=== PATIENT | male | born 1940 | race Caucasian/White ===

== ENCOUNTER 2019-04-21 06:11 | Inpatient (IN) ==
--- NOTE | 2019-04-02 18:51 | ANES ---
Anesthesia Pre Procedure Eval HOME MEDICATIONS sildenafil (antihypertensive) 20 mg tablet See Rx Instructions PO DAILY PRN #90 tab 07/10/18 [Last Taken Unknown] ipratropium-albuterol 0.5 mg-3 mg(2.5 mg base)/3 mL nebulization soln 3 ml IH QID #360 ml 03/03/19 [Last Taken Unknown] hydrochlorothiazide 25 mg tablet See Rx Instructions .ROUTE .COMPLEX #90 tablet 03/18/19 [Last Taken Unknown] lisinopril 40 mg tablet 40 mg PO DAILY #90 tab 03/18/19 [Last Taken Unknown] metformin 1,000 mg tablet 1,000 mg PO DAILY #90 tab 03/19/19 [Last Taken Unkno wn] Allergies/Adverse Reactions: Allergies Allergy/AdvReac Type Severity Reaction Status Date / Time No Known Allergies Allergy Verified 04/02/19 08:23 - Planned Procedure Planned Procedure: L Arthroplasty Total Knee Medication List Reviewed:: Yes Allergies Verified: Yes Medical History (Last Updated 04/02/19 @ 08:22 by Fang Van RN) History of DVT (deep vein thrombosis) Onset Date: Unknown Chronic bronchitis Onset Date: Unknown Congestive heart failure Onset Date: Unknown Diabetes mellitus type 2 in obese Onset Date: Unknown Echocardiogram abnormal Onset Date: 10/30/11 moderate LVH, EF normal Hypertension Onset Date: Unknown Abnormal stress test Onset Date: 09/27/11 undetermined Surgical History (Last Reviewed 04/02/19 @ 08:22 by Fang Van, RN) NATHAN Onset Date: 10/30/11 RLE with atherosclerotic disease and LLE normal Echocardiogram abnormal Onset Date: 10/30/11 Moderate LVH, EF normal 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 Irizarry-bilateral History of colonoscopy Onset Date: 12/26/17 12/26/17 Cee-diverticulosis. Recheck 10 yrs. History of knee replacement procedure of right knee Onset Date: ~2004 Dr. Irizarry Family History (Last Reviewed 04/02/19 @ 08:22 by Fang Van, RN) Brother , 1- age 60-unsure Myocardial infarction, Onset Age: 50 Father Lung cancer, Onset Age: 56 Mother Myocardial infarction, Onset Age: 54 Bone cancer, Onset Age: 54 Sister , 1-at No problems noted. Son Throat cancer, Onset Age: 53 - Airway/Neck/Teeth Teeth Condition: missing, poor condition Denture Type: Perm crown/bridge Mallampatti Score: 2 Thyromental (T-M) distance: > 6 cm Mandibulo Hyoid distance: > 3 cm - Respiratory Smoking Status: Current every day smoker Discussed smoking cessation including day of surgery: Yes Sleep Apnea currently treated: No Sleep Apnea by current assessment: No Discussed Risks/Treatment of WICHO: No - Cardiovascular Tolerate Activity: Fair Heart Sounds: S1 & S2, Regular - Anesthesia Assessment and Plan ASA Class: PS, III Anesthesia Type Plan: Block - Left ultrasound guided adductor canal nerve block for postop analgesia, Spinal
[~2019-04-21 06:11] MED LIST: MORPHINE SULFATE 15 MG TABLET.SA PO PRN; ROPIVACAINE HCL/PF 100 MG, EPINEPHrine 0.2 MG, KETOROLAC TROMETHAMINE 30 MG in NORMAL S... IJ PRN; TRANEXAMIC ACID 1,000 MG in NORMAL SALINE 100 ML IV PRN; ceFAZolin SODIUM 1 GM VIAL IV PRN
[2019-04-21] MEDS ORDERED: ISOPROPYL ALCOHOL 480 APPL BTL MC ONE (06:13)
[2019-04-21] MEDS ORDERED: ceFAZolin SODIUM 1 GM VIAL ONE (06:14)
[2019-04-21] MEDS: RINGER'S SOLUTION,LACTATED 1,000 ML IV PRN ×3 (07:09→08:58)
[2019-04-21] MEDS ORDERED: LIDOCAINE HCL 20 ML VIAL ONE (07:20)
[2019-04-21] MEDS ORDERED: fentaNYL CITRATE/PF 50 MCG/ML AMPUL ONE (07:20)
[2019-04-21] MEDS ORDERED: ONDANSETRON HCL/PF 2 MG/ML VIAL ONE (07:20)
[2019-04-21] MEDS ORDERED: PROPOFOL VIAL IV ONE (07:21)
[2019-04-21] MEDS ORDERED: BUPIVACAINE HCL/EPINEPHRINE 50 ML VIAL ONE (07:21)
[2019-04-21] MEDS ORDERED: ONDANSETRON HCL/PF 2 MG/ML VIAL IV PRN (09:47)
[2019-04-21] MEDS ORDERED: ZOLPIDEM TARTRATE 5 MG TABLET PO PRN (09:47)
[2019-04-21] MEDS ORDERED: RINGER'S SOLUTION,LACTATED 1,000 ML IV PRN (09:47)
[2019-04-21] MEDS ORDERED: MAG HYDROX/ALUMINUM HYD/SIMETH 30 ML UDC PO PRN (09:47)
[2019-04-21] MEDS ORDERED: MAGNESIUM HYDROXIDE 30 ML UDC PO PRN (09:47)
[2019-04-21] MEDS ORDERED: ACETAMINOPHEN 500 MG TABLET PO PRN (09:47)
[2019-04-21] MEDS ORDERED: MORPHINE SULFATE 2 MG/ML DISP.SYRIN IV PRN (09:47)
[2019-04-21] MEDS ORDERED: diphenhydrAMINE HCL 50 MG/ML VIAL IV PRN (09:47)
--- NOTE | 2019-04-21 09:47 | OR ---
Operative Report - Dictated Report Narrative: Date: 04/21/2019 Preoperative diagnosis: Left knee degenerative joint disease. Postoperative diagnosis: Left knee degenerative joint disease. Procedure: Left total knee arthroplasty. Surgeon: Robert Jung M.D. Distributor Of Directories: Juan F Villa PA-C (provided and essential set of skilled, educated hands that assisted with transfer, positioning, prepping, draping, manipulation, retraction, placement of jigs, injection, insertion of implants, irrigation, closure wounds, and dressings all of which could not be performed by the available surgical crew) Anesthesia: Spinal with regional block and local periarticular joint injection. Complications: None Specimens: Bone. Estimated blood loss: Minimal. Tourniquet time: 95 Minutes at 300 millimeters of mercury. Retained implants: Depuy Attune size 8 left lugged cemented posterior stabilized femoral component. Size 8 fixed-bearing cemented tibial platform. 8 by 6 millimeter posterior stabilized cross-linked tibial insert. 41 millimeter medialized patella button. Indications: Mr. Lan is a 78-year-old gentleman who has had longstanding left knee pain and arthrosis. This patient was followed in my clinic for period of time with significant complaints of left knee pain consistent with arthritic changes. He had failed conservative measures including, but not limited to, activity modification, passage of time, medications, and other conservative measures. Patient wished to proceed with surgical treatment. The risks, benefits, and alternatives were discussed in clinic. The risks of , blood clots, bleeding, infection, nerve/tendon blood vessel/ injury, malposition of components, intraoperative fracture, postoperative limited range of motion, persistent pain, failure of components, and need for additional procedures. Patient wished to proceed consent was obtained after answering all questions. Procedure: After marking the correct extremity on the floor, the patient was taken to the operating room. A timeout was performed. IV antibiotics consisting of Ancef were administered prior to the procedure. A regional followed by spinal anesthetic was induced by anesthesia, per my request, on the operative table with all bony prominences well-padded. Lay catheter was placed, and a bump was placed under the operative side buttock. SCDs and ROSE MARIE hose were utilized on the nonoperative leg. A well-padded tourniquet was applied to the operative thigh. The operative leg was then pre-scrubbed with alcohol, prepped, and draped in a standard sterile fashion. After exsanguinating the extremity with an Esmarch bandage, the tourniquet was inflated. After marking out the anterior knee for standard incision centered over the patella, the skin was incised and dissected down to the joint retinaculum. The joint retinaculum was marked out as well as the horizontal axis of the patella, and a standard medial parapatellar arthrotomy was then made. The most proximal aspect of the quadriceps tendon and the patella tendon insertion were protected from release. A partial synovectomy was performed as well as a resection of the infrapatellar fat pad. The distal femoral fat pad proximal to the trochlea was also resected using cautery. The soft tissues were elevated off the medial aspect of the proximal tibia using a Pacheco elevator ensuring that we did not transect the medial collateral ligament. Upon initial evaluation range of motion was approximately 0 degrees to 110 degrees of flexion. There were signs of advanced arthrosis in the medial patellofemoral greater than lateral joint spaces. There were large marginal osteophytes which were removed with a rongeur. The knee was hyperflexed and the patella was tucked laterally. Protecting the surrounding soft tissues with Homans, an entry drill was placed down the femoral canal using Whitesides line for guidance into the entry point. The intramedullary femoral alignment js was utilized in order to cut the distal femur in 5 degrees of valgus resecting 10 millimeters of bone. Next the distal femur was sized to a size 8. A posterior referencing guide was utilized to place the distal femoral cutting block in 3 degrees of external rotation. This was pinned into place. The rotation was confirmed both visually and based on anatomic landmarks. The 4 in 1 cutting jig of the appropriate size was utilized in order to make all bony cuts. The angle wing was used to ensure no notching. Retractors were utilized in order to protect surrounding soft tissues. This cut did not result in any excessive notching. We then cut the box centered over the distal femur. This allowed for resection of the anterior and posterior cruciate ligaments. I then turned my attention to the preparation of the tibia. Using an extra medullary tibial alignment js, 4 millimeters of bone was resected off the medial articular surface. This was made perpendicular to the mechanical axis of the joint with the alignment js centered over the ankle mortise. The alignment js was checked and was noted to be parallel to the mechanical axis, centered over the medial one third of the tibial tubercle, paralleling the anterior surface of the tibia. We then turned our attention to the remaining meniscus and soft tissues. These were removed while protecting the surrounding ligaments and soft tissues. The marginal osteophytes off the anterior, posterior, medial, lateral aspects of the femur and tibia were removed. The tibia was sized out to a size 8. Next the tibia was drilled and punched in an externally rotated position. Next the trial femur and a series of tibial inserts were utilized in order to allow for full extension and maximal flexion. It was found that a 6 millimeter insert gave the best range of motion and stability at multiple flexion points as well as at full extension there was less than 2 mm of gapping both medially and laterally. There is minimal anterior translation with the knee at 90 degrees of flexion and no signs of being able to dislocate the knee. The patella was then prepared. The initial thickness was 27 millimeters. This was reamed down to 17 millimeters parallel to the anterior surface of the patella. It was sized out to a size 41 medialized patella button. This was then drilled and trialed. Without any medial restraint the patella tracked appropriately and did not sublux or dislocate. At this point, it was felt these were the appropriate sized implants, and all trials were removed. The standard periarticular joint injection consisting of ropivacaine, Toradol, and epinephrine were injected into the periarticular joint tissues. The bony surfaces were thoroughly irrigated with a pulsatile-suction saline irrigation device. A bone plug from the prior resected anterior chamfer cut was placed into the drill hole at the distal femur. The bony surfaces were then dried in preparation for placement of the implants. The cement was vacuum mixed per the life insurance underwriter's instructions. The cement was placed on the dry bony surfaces and posterior aspect of the implants. The implants were impacted into place, removing all extruded cement. At this point anesthesia administered tranexamic acid per protocol intravenously. The knee was placed in extension with axial loading with the trial insert while the cement cured. Once the cement cured, all remaining extruded cement was removed. The knee was placed through a range of motion with the trial insert to ensure appropriate range of motion and stability. Final range of motion was approximately 0 to 120 degrees. The knee was again thoroughly irrigated with pulsatile saline lavage. The final polyethylene insert was then impacted into place ensuring no retained soft tissues. The remaining periarticular joint injection was injected. A medium Hemovac drain was placed exiting superior laterally. The knee was then placed over a triangle and the arthrotomy was closed with interrupted #1 Vicryl after thoroughly irrigating the joint. The deep and subcutaneous tissues were closed with interrupted 0 and 3-0 Vicryl respectively. Skin was closed with a running subcutaneous 3-0 Monocryl and Prineo Dermabond dressing. 4 x 4's, Sof-Rol, and a full leg Ritesh wrap were applied. All sponge, needle, blade, and instrument counts were correct prior to closing the wounds. Postoperative condition: The patient was awoken and transferred to the postanesthesia care unit in stable condition. Plan is to be admitted to the inpatient medical/surgical floor postoperatively for 24 hours of IV antibiotics, physical therapy, occupational therapy, and medical comanagement. Patient will be weightbearing as tolerated with range of motion as tolerated. DVT prophylaxis will be with SCDs, ROSE MARIE hose, and pharmacological anticoagulation. Anticipated hospital stay is approximately 1-3 days.
[2019-04-21] MEDS ORDERED: SILDENAFIL CITRATE 20 MG TABLET PO PRN (09:49)
--- NOTE | 2019-04-21 10:01 | ANES ---
Post Anesthesia Discharge - Transfer of Care Transfer of Care handoff given to nurse: Yes - Discharge from PACU Discharge from PACU when meets criteria: Yes - Discharge to ASU Discharge to ASU-no complications/pt stable: Yes
--- NOTE | 2019-04-21 10:03 | ANES ---
Anesthesia Procedure Note Procedure Note: ANESTHESIA PROCEDURE NOTE Date of Procedure: 04/21/2019. Time of procedure: 0740. Performed by: Jd Rosenthal CRNA Coder: None. Preprocedure diagnosis: Left knee degenerative joint disease. Post procedure diagnosis: Same. Procedure: Left ultrasound guided adductor canal block for postoperative analgesia. Indications: The patient is a 78-year-old male, requesting left ultrasound- guided abductor canal block for postoperative analgesia related to left total knee arthroplasty. Findings: See below. Details of the procedure: The tissue over the intended target site was cleansed with ChloraPrepand draped in a sterile fashion. 2 ml Lidocaine 1 % was infiltrated to the skin and subcutaneous tissue at the intended target site. Under sterile technique and ultrasound guidance a 20-gauge block needle was inserted through the left sartorius muscle to the saphenous nerve just anterior and medial to the superficial femoral artery and vein. 15 mL's of 0.5% bupivacaine plus epinephrine 1-200,000 was injected after negative aspiration for blood. Needle tip and spread of local anesthetic surrounding the saphenous nerve was observed throughout the injection with real time ultrasound visualization. The needle was then removed intact. No complications were noted. The images were retained in the Hospital medical database. EBL: Minimal. Fluids: N/A. Specimen: N/A. Post procedure condition: The patient tolerated the procedure well. No complications were noted. Thank you for this consultation. Jd Rosenthal CRNA
[2019-04-21] MEDS: KETOROLAC TROMETHAMINE 15 MG/ML VIAL IV SCH ×3 (10:43→23:16)
[2019-04-21] MEDS: ceFAZolin SODIUM 1 GM in DEXTROSE 5 % IN WATER 100 ML IV SCH ×6 (10:50→23:16)
[2019-04-21] MEDS: ALBUTEROL SULFATE/IPRATROPIUM 3 ML NEBU IH SCH ×3 (11:05→18:21)
[2019-04-21] MEDS: oxyCODONE HCL/ACETAMINOPHEN 1 TAB TABLET PO PRN (11:51)
--- NOTE | 2019-04-21 12:49 | ANES ---
Post Anesthesia Assessment - Vital Signs Vitals: Last Vital Signs Temp 36.3 C 04/21/19 10:25 Pulse 61 04/21/19 11:15 Resp 18 04/21/19 11:15 BP 167/76 H 04/21/19 11:10 Pulse Ox 100 04/21/19 11:10 Airway Patency: Normal - Mental Status Level Of Consciousness: Awake - Pain Level Pain Score: 0 - N/V Assessment Nausea/Vomiting Presence: None Dehydration:: No
[2019-04-21] MEDS: SENNOSIDES/DOCUSATE SODIUM 1 TAB TABLET PO SCH (20:14)
[2019-04-21] MEDS: MORPHINE SULFATE 15 MG TABLET.SA PO SCH (20:15)
[2019-04-22] MEDS: KETOROLAC TROMETHAMINE 15 MG/ML VIAL IV SCH ×4 (04:24→23:01)
[2019-04-22] MEDS: ALBUTEROL SULFATE/IPRATROPIUM 3 ML NEBU IH SCH ×4 (06:10→18:12)
[2019-04-22 06:30] LABS: Hematocrit 37.5 % (42.0-52.0); Hemoglobin 12.5 gm/dL (13.5-18.0); Mean Cell Volume 92.1 fl (78-100); Mean Corpuscular Hemoglobin 30.7 pg (27-31); Mean Corpuscular Hgb Conc 33.3 g/dl (32-36); Mean Platelet Volume 9.7 fl (8-11.3); Platelet Count 244 K/mm3 (150-450); Red Blood Count 4.07 M/mm3 (4.7-6.0); Red Cell Distribution Width 15.4 % (11.5-14.0); White Blood Count 11.7 K/mm3 (4.0-10.5)
[2019-04-22 06:35] LABS: Anion Gap 12.1 mmol/L (6.8-13.8); BUN/Creatinine Ratio 19.7 (9.0-21.6); Calcium * 7.8 mg/dL (7.9-10.9); Carbon Dioxide 26.8 mmol/L (24-32.6); Estimated Creat Clear 50.4; Potassium 4.9 mmol/L (3.4-4.6)
--- NOTE | 2019-04-22 08:08 | PN ---
Subjective - Date and Time Seen Date: 04/22/19 Time: 08:04 Subjective Narrative: Patient reports he is doing well. Pain controlled. Was able to get up to chair this am. No complaints at this time. Is planning on going to skilled center on . Objective Objective Narrative: Bandages C/D/I. Drain intact. Is able to do straight leg raise. N/V intact LLE. - Vitals Vitals: Last Vital Signs Temp 36.7 C 04/21/19 11:40 Pulse 80 04/22/19 08:02 Resp 18 04/22/19 08:02 BP 134/68 04/22/19 08:02 Pulse Ox 93 04/22/19 08:02 - Abnormal Lab Findings Abnormal Lab Findings: Abnormal Lab Results 04/22/19 04/22/19 Range/Units 06:24 06:24 WBC 11.7 H (4.0-10.5) K/mm3 RBC 4.07 L (4.7-6.0) M/mm3 Hgb 12.5 L (13.5-18.0) gm/dL Hct 37.5 L (42.0-52.0) % RDW 15.4 H (11.5-14.0) % Potassium 4.9 H (3.4-4.6) mmol/L BUN 24 H (6-23) mg/dL Random Glucose 120 H (70-110) mg/dL Calcium 7.8 L (7.9-10.9) mg/dL - Exam Constitutional: Present: Alert, Oriented x3, Cooperative, No distress Cauti Physician Documentation - Urinary Catheter Management Urethral (Lay) Date of Insertion: 04/21/19 Time of Insertion: 08:10 Assessment/Plan - Problems/Diagnosis (1) Status post left knee replacement Problem: Acute Narrative: PT, anticoagulation, pain control (2) Acute blood loss anemia Problem: Acute Narrative: Down from 14.7g preop to 12.5g, asymptomatic, observation (3) Hypertension Problem: Chronic Qualifiers: (4) Diabetes mellitus type II, controlled Problem: Acute Qualifiers: (5) COPD (chronic obstructive pulmonary disease) Problem: Acute Qualifiers:
[2019-04-22] MEDS ORDERED: FLU VACC QS2019-20(6MOS UP)/PF 60 MCG/0.5 ML SYRINGE IM ONE (09:00)
[2019-04-22] MEDS: ENOXAPARIN SODIUM 40 MG/0.4 ML SYRG SC SCH (09:08)
[2019-04-22] MEDS: MORPHINE SULFATE 15 MG TABLET.SA PO SCH ×2 (09:09→20:38)
[2019-04-22] MEDS: oxyCODONE HCL/ACETAMINOPHEN 1 TAB TABLET PO PRN ×2 (09:09→23:02)
[2019-04-22] MEDS: LISINOPRIL 40 MG TABLET PO SCH (09:09)
[2019-04-22] MEDS: HYDROCHLOROTHIAZIDE 25 MG TABLET PO SCH (09:09)
[2019-04-22] MEDS: SENNOSIDES/DOCUSATE SODIUM 1 TAB TABLET PO SCH (20:38)
[2019-04-23] MEDS: KETOROLAC TROMETHAMINE 15 MG/ML VIAL IV SCH (05:06)
[2019-04-23] MEDS: ALBUTEROL SULFATE/IPRATROPIUM 3 ML NEBU IH SCH ×4 (06:00→18:04)
[2019-04-23] MEDS: HYDROCHLOROTHIAZIDE 25 MG TABLET PO SCH (08:53)
[2019-04-23] MEDS: MORPHINE SULFATE 15 MG TABLET.SA PO SCH ×2 (08:53→21:41)
[2019-04-23] MEDS: LISINOPRIL 40 MG TABLET PO SCH (08:53)
[2019-04-23] MEDS: ENOXAPARIN SODIUM 40 MG/0.4 ML SYRG SC SCH (08:54)
--- NOTE | 2019-04-23 11:50 | PN ---
Subjective - Date and Time Seen Date: 04/23/19 Time: 11:48 Subjective Narrative: Subjective: Reports good pain control. Was able to walk in the [place] with therapy. Pain is well-controlled. Voiding without any complications. Tolerating by mouth intake. Denies any nausea or vomiting. Physical exam: Alert and oriented to person, place and time Left lower extremity: Palpable dorsalis pedis pulse. Sensation grossly intact to light touch. Dressings clean and dry. Able to flex and extend ankle and toes. No excessive drainage. Calf and thigh are soft and nontender. Assessment: Postop day 2 status post left total knee arthroplasty. Plan: Due to the need for pain control, post-operative limited mobility, protection of the surgical site and joint, monitoring of the wound, and the management of chronic medical conditions, he requires continued inpatient care. Continue with physical and occupational therapy weightbearing as tolerated. Continue with anticoagulation. Pain control with goal to rely on oral medications. Continue bowel regimen. Will need 6 weeks with walker or assitive device to protect joint while ambulating during the recovery process. Discharge planning -he is planning on going to a custodial facility for additional therapy prior to returning home. Objective - Vitals Vitals: Last Vital Signs Temp 36.7 C 04/23/19 11:00 Pulse 73 04/23/19 11:00 Resp 20 04/23/19 11:00 BP 147/68 04/23/19 11:00 Pulse Ox 93 04/23/19 11:00 Cauti Physician Documentation - Urinary Catheter Management Urethral (Lay) Date of Insertion: 04/21/19 Time of Insertion: 08:10 Assessment/Plan - Problems/Diagnosis (1) Acute blood loss anemia Problem: Acute (2) Status post left knee replacement Problem: Acute (3) COPD (chronic obstructive pulmonary disease) Problem: Chronic Qualifiers: (4) Diabetes mellitus type II, controlled Problem: Chronic Qualifiers: (5) Hypertension Problem: Chronic Qualifiers:
[2019-04-23] MEDS: oxyCODONE HCL/ACETAMINOPHEN 1 TAB TABLET PO PRN (19:47)
[2019-04-23] MEDS: guaiFENesin/DEXTROMETHORPHAN SYRUP PO PRN (20:03)
[2019-04-23] MEDS: SENNOSIDES/DOCUSATE SODIUM 1 TAB TABLET PO SCH (21:40)
[2019-04-24] MEDS: ALBUTEROL SULFATE/IPRATROPIUM 3 ML NEBU IH SCH ×2 (06:01→10:41)
[2019-04-24] MEDS: guaiFENesin/DEXTROMETHORPHAN SYRUP PO PRN (07:26)
--- NOTE | 2019-04-24 07:52 | DS ---
(1) Acute blood loss anemia Problem: Acute (2) Status post left knee replacement Problem: Acute (3) COPD (chronic obstructive pulmonary disease) Problem: Chronic Qualifiers: (4) Diabetes mellitus type II, controlled Problem: Chronic Qualifiers: (5) Hypertension Problem: Chronic Qualifiers: (6) Cough Problem: Acute Date of Discharge:: 04/24/19 Hospital Course: Mr. Lan was admitted to the floor after undergoing left total knee arthro plasty. Tolerated this well. Was admitted to the floor postoperatively for 24 hours of IV antibiotics, pain control, medical comanagement, and occupational and physical therapy. OT and PT were consulted to assist with activities of daily living and ambulation. Was made weightbearing as tolerated with range of motion as tolerated. Pain was initially controlled with IV regimen. This was transitioned to oral once tolerating a by mouth intake. Was resumed on home diet and medications. Had a Lay catheter inserted and the operating room which was discontinued on postoperative day 1. A drain was placed intraoperatively into the knee which was discontinued on postoperative day 1. Lovenox SCD and ROSE MARIE hose were utilized for DVT prophylaxis. Vital signs remained stable to the hospital course. Labs were obtained which showed a final hemoglobin of 12.5 grams. Pre-op hemoglobin was 14.7. He was asymptomatic and thus this will be monitored. BMP was reviewed and was stable. Physical examination throughout the hospital course showed an extremity that had sensation that was intact to light touch, palpable pulses, a benign wound, motor intact to the toes, ankle, and knee. Knee range of motion was approximately 5 degrees to 60 degrees. He was somewhat slow to progress with therapy and based on his living situation we elected to transfer to a halfway facility for additional physical therapy. Instructions: Continue with weightbearing as tolerated and range of motion as tolerated. It is okay to shower and get the wound wet as long as there is no drainage from the wound. Do not bathe or soak the wound. If there is any drainage from the wound keep the wound clean and dry and cover with dry gauze and tape. Change every 2- 3 days as needed if there is any drainage. Cover wound while showering if there is any drainage. Continue with physical therapy. Resume home diet. Report any fever over 101.5 Fahrenheit, uncontrolled pain, increased drainage, foul odor of drainage, new or increased calf pain or shortness of breath, or any other significant complaints. A 325mg dialy aspirin will be started after finishing anticoagulation if not allergic. Continue with ROSE MARIE hose on the operative extremity until instructed otherwise. No driving until instructed otherwise. Follow up in approximately 2-3 weeks. Procedures Performed: see notes below List Procedures: Left total knee arthroplasty Results and Findings: Lab Pending Results 04/22/19 06:24: WBC 11.7 H, RBC 4.07 L, Hgb 12.5 L, Hct 37.5 L, MCV 92.1, MCH 30.7, MCHC 33.3, RDW 15.4 H, Plt Count 244, MPV 9.7 04/22/19 06:24: Sodium 136, Plasma Sodium 136, Potassium 4.9 H, Chloride 102, Carbon Dioxide 26.8, Anion Gap 12.1, BUN 24 H, Creatinine 1.22, Est GFR (Non-Af Amer) 61, BUN/Creatinine Ratio 19.7, Random Glucose 120 H, Calcium 7.8 L Discharge Location: [facility] Disposition: SNF Condition: Good Discharge Activity: Activity as tolerated, Weight bearing Discharge Diet: Consistent carbs Group Home Therapy: Physical Therapy, Occupation Therapy Referrals: Robert Jung MD [Staff Physician] - 05/13/19 10:45 am Additional Patient Instructions (free text): Patient going to [facility] at discharge for SNF. Please fax discharge orders and call report. PT and OT to evaluate and treat. Follow-up with Dr. Jung in the office on Sunday05-13-19 at 10:45am. Prescriptions (Any new or edited meds): Enoxaparin Sodium [Lovenox] 40 mg SC Q24H #7 disp.syrin Transmission Status: Pending to [facility], [place] Morphine Sulfate [Ms Contin] 15 mg PO Q12H #10 tablet.sa Transmission Status: Sent to [place], [place] oxyCODONE HCL/ACETAMINOPHEN [Percocet 5 MG/325 MG] 2 tab PO Q4H PRN #60 tab PRN Reason: Moderate Pain (Pain Scale 4-6) Transmission Status: Sent to [facility] [place] Sennosides/Docusate Sodium [Senokot-S] 2 tab PO HS #60 tab Transmission Status: Pending to [facility] [place], [place] Complete Home Medications List: Complete Home Medication List: ipratropium-albuterol 0.5 mg-3 mg(2.5 mg base)/3 mL nebulization soln 3 ml IH QID #360 ml 03/03/19 lisinopril 40 mg tablet 40 mg PO DAILY #90 tab 03/18/19 metformin 1,000 mg tablet 1,000 mg PO DAILY #90 tab 03/19/19 Hydrochlorothiazide [Hydrodiuril] 1 tab PO DAILY 04/21/19 Sildenafil Citrate [Revatio] 1 - 5 tab PO DAILY PRN 04/21/19 Enoxaparin Sodium [Lovenox] 40 mg SC Q24H #7 disp.syrin 04/24/19 Morphine Sulfate [Ms Contin] 15 mg PO Q12H #10 tablet.sa 04/24/19 Sennosides/Docusate Sodium [Senokot-S] 2 tab PO HS #60 tab 04/24/19 guaiFENesin/DEXTROMETHORPHAN [Robitussin-Dm] 10 ml PO Q4H PRN syrup 04/24/19 oxyCODONE HCL/ACETAMINOPHEN [Percocet 5 MG/325 MG] 2 tab PO Q4H PRN #60 tab 04/24/19
[2019-04-24] MEDS: MORPHINE SULFATE 15 MG TABLET.SA PO SCH (09:06)
[2019-04-24] MEDS: oxyCODONE HCL/ACETAMINOPHEN 1 TAB TABLET PO PRN (09:06)
[2019-04-24] MEDS: HYDROCHLOROTHIAZIDE 25 MG TABLET PO SCH (09:07)
[2019-04-24] MEDS: ENOXAPARIN SODIUM 40 MG/0.4 ML SYRG SC SCH (09:07)
[2019-04-24] MEDS: LISINOPRIL 40 MG TABLET PO SCH (09:07)
[2019-04-24 10:48] VITALS: BP 137/67
== END 2019-04-24 10:55 | DRG 470 ==
LOC: MS 06:11 → EDSTATUS 08:00
PROVIDERS: ADMIT Orthopaedic Surgery; ATTEND Orthopaedic Surgery
CPT/HCPCS: 36415; 71020; 71046; 73560; 80048; 85027; 90686; 94640; 94664; 97110; 97116; 97161; 97165; 97535; J2405

== ENCOUNTER 2019-04-25 11:59 | Observation (INO) ==
[2019-04-25] MEDS ORDERED: PANTOPRAZOLE SODIUM 40 MG/100 ML PIGGYBACK IV ONE (12:14)
--- NOTE | 2019-04-25 12:16 | ERNOTE ---
Medical Problem HPI - General Chief Complaint: Nausea/Vomiting Time Seen by Provider: 04/25/19 11:59 Source: patient, RN/MD, EMS Exam Limitations: no limitations - Immun/Allergies/Home Medications Immunizations: IMMUNIZATION HX Immunizations Up to Date Yes History of Influenza Vaccine No Hx Pneumococcal Vaccination No Allergies/Adverse Reactions: Allergies No Known Allergies Allergy (Verified 04/25/19 12:13) Home Medications: HOME MEDICATIONS ipratropium-albuterol 0.5 mg-3 mg(2.5 mg base)/3 mL nebulization soln 3 ml IH QID #360 ml 03/03/19 [Last Taken 04/25/19 12:00] lisinopril 40 mg tablet 40 mg PO DAILY #90 tab 03/18/19 [Last Taken 04/25/19 07:00] metformin 1,000 mg tablet 1,000 mg PO DAILY #90 tab 03/19/19 [Last Taken 04/25/19 07:00] Sildenafil Citrate [Revatio] 1 - 5 tab PO DAILY PRN 04/21/19 [Last Taken Unknown] Morphine Sulfate [Ms Contin] 15 mg PO Q12H #10 tablet.sa 04/24/19 [Last Taken 04/25/19 08:00] Sennosides/Docusate Sodium [Senokot-S] 2 tab PO HS #60 tab 04/24/19 [Last Taken 04/24/19] guaiFENesin/DEXTROMETHORPHAN [Robitussin-Dm] 10 ml PO Q4H PRN syrup 04/24/19 [Last Taken Unknown] oxyCODONE HCL/ACETAMINOPHEN [Percocet 5 MG/325 MG] 2 tab PO Q4H PRN #60 tab 04/24/19 [Last Taken 04/25/19 00:22] Aspirin 325 mg PO DAILY 04/25/19 [Last Taken Unknown] Enoxaparin Sodium [Lovenox] 40 mg SC Q24H 04/25/19 [Last Taken 04/25/19 07:00 40] Hydrochlorothiazide [Hydrodiuril] 25 mg PO DAILY 04/25/19 [Last Taken 04/25/19 07:00] - History of Present History Narrative: Patient is 79-year-old white male with recent left knee arthroplasty on 04/21/2019 and has been at [facility] for skilled rehab. He denies taking any NSAIDs, aspirin but was started on Lovenox injections this a.m. He has not been eating well for the last several days due to the Percocet causing some nausea. He has had some vomiting over last several days but did not have any coffee-ground emesis until this a.m. He does complain of some lightheadedness when standing and some slight shortness of breath when ambulating, but does admit to history of COPD. He denies any chest pain, melena or hematochezia, states hasn't had a BM since Sunday. He has no previous history of GI bleeds. He feels weak and tired at this time, but otherwise no other issues. He denies any significant alcohol use in the past or present. Due to the coffee-ground emesis [facility] requested he be sent to the ER via EMS for further evaluation. He is holding an emesis bag that does have black substance in it. EMS reports that his O2 sats were in the low 80s so they did place him on oxygen and got him into the low 90s at 2 L nasal cannula. They did place a IV in his left forearm, no IV fluids given. And they did give him an albuterol treatment due to significant wheezing heard. BP on Admit Selected Entries 04/25/19 12:04 Blood Pressure 106/56 Timing: intermittent Severity: moderate Review of Systems - Review of Systems Constitutional: Present: weakness, fatigue. Absent: fever, chills EYE: Present: no symptoms reported ENT: Present: no symptoms reported Respiratory: Present: shortness of breath, wheezing Cardiology: Present: no symptoms reported Gastrointestinal/Abdominal: Present: See HPI, nausea, vomiting. Absent: diarrhea, constipation, abdominal pain Genitourinary: Present: no symptoms reported Musculoskeletal: Present: no symptoms reported Skin: Present: no symptoms reported Neurological: Present: no symptoms reported Endocrine: Present: no symptoms reported Hematologic/Lymphatic: Present: no symptoms reported Psych: Present: no symptoms reported Medical History (Last Reviewed 04/25/19 @ 12:22 by Mikey Masterson MD) Chronic bronchitis Onset Date: Unknown Congestive heart failure Onset Date: Unknown Diabetes mellitus type 2 in obese Onset Date: Unknown Echocardiogram abnormal Onset Date: 10/30/11 moderate LVH, EF normal History of DVT (deep vein thrombosis) Onset Date: Unknown Hypertension Onset Date: Unknown Abnormal stress test Onset Date: 09/27/11 undetermined Surgical History: Surgical History (Last Reviewed 04/25/19 @ 12:22 by Mikey Masterson MD) NATHAN Onset Date: 10/30/11 RLE with atherosclerotic disease and LLE normal Echocardiogram abnormal Onset Date: 10/30/11 Moderate LVH, EF normal Fatty tumor Onset Date: ~2004 right shoulder H/O excision of epidermal inclusion cyst Onset Date: 12/31/15 [place]-left hip H/O hemorrhoidectomy Onset Date: Unknown H/O hernia repair Onset Date: ~1949 Left inguinal History of carpal tunnel release of both wrists Onset Date: ~1993 Dr. Irizarry-bilateral History of colonoscopy Onset Date: 12/26/17 12/26/17 [place]-diverticulosis. Recheck 10 yrs. History of knee replacement procedure of right knee Onset Date: ~2004 Dr. Irizarry Family History: Family History (Last Reviewed 04/25/19 @ 12:22 by Mikey Masterson MD) Brother , 1- age 60-unsure Myocardial infarction, Onset Age: 50 Father Lung cancer, Onset Age: 56 Mother Myocardial infarction, Onset Age: 54 Bone cancer, Onset Age: 54 Sister , 1-at No problems noted. 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[employer]: No Tobacco: Smoking Status: Current every day smoker tobacco type: cigarettes Smoking cigarettes per day: 10.0 Smoking packs per day: 0.5 Years smoked: 71 Smoking pack-years: 35.50 Tobacco: How many years used: 71 Alcohol: alcohol intake: current Alcohol type: beer alcohol intake frequency: holiday/special occasion Substance Use: substance use type: does not use Dietary Habits: caffeine: Yes Type: coffee Physical Exam - Physical Exam General Appearance: Present: alert, mild distress, lethargic, obese, other - pale Head Exam: Present: normal inspection, no evidence of injury Eye Exam: Normal inspection: bilateral, PERRL: bilateral, EOMI: bilateral Ears, Nose, Throat: Present: normal ENT inspection, other - black material in OP/coating tongue Neck: Present: normal inspection Respiratory: Present: expiration (prolonged), rhonchi, wheezing Cardiovascular/Chest: Present: regular rate, rhythm, no murmur, normal peripheral pulses Peripheral Pulses: N=norm/S=strong/W=weak/B=bound/A=absent: Radial (R): Normal, Radial (L): Normal Gastrointestinal/Abdominal: Present: normal bowel sounds, distended - tympanitic Neurological Exam: Present: alert, oriented, normal mood/affect, no motor/sensory deficits Skin Exam: Present: pallor Progress - Results and Orders Patient's Lab Results:: I have reviewed the patient's lab results. - Vital Signs Patient's Vital Signs:: I have reviewed the patient's vital signs. Vital Signs: Vital Signs 04/25/19 12:01 04/25/19 12:04 Temperature 36.0 C Pulse Rate 85 80 Respiratory Rate 21 H 14 Blood Pressure 106/56 O2 Sat by Pulse Oximetry 91 L 87 L - X-Ray X-Ray #1 X-Ray: chest Interpretation: Reviewed by me - IMPRESSION: NO ACUTE CARDIOPULMONARY ABNORM ALITY IDENTIFIED. hyperinflated consistent with COPD - Progress/Reassessment Chief Complaint: Nausea/Vomiting Progress:: Unchanged Progress Note-Subjective: 04/25/19 14:[address] Miles who accepted pt. for admit to obs. Plan - Plan Plan: Pt. Hb dropped to 10.0, with elevated Cr of 1.82, with positive Gastrocult, feel prudent to admit for observation to monitor serial H/H and to place pt. on protonix and do SCD's for DVT prophylaxis, holding his lovenox. Dr. Jung notified via [facility] of plan. Will admit to medicine service. Departure Clinical Impression: Acute blood loss anemia, Upper GI bleed, Acute kidney injury, COPD (chronic obstructive pulmonary disease) - Departure Disposition: Still a patient Condition: Stable Referrals: Irvin Aranda MD [Primary Care Provider] -
[2019-04-25 12:24] LABS: Hematocrit 30.5 % (42.0-52.0)
[2019-04-25 12:36] LABS: Prothrombin Time (Patient) 10.2 Seconds (9.1-10.7)
[2019-04-25 12:37] LABS: INR 1.03 INR (0.92-1.08); Partial Thrombolplastin Time 29.4 Seconds (24-32)
[2019-04-25 12:44] LABS: Albumin * 2.1 gm/dl (3.4-5.0); Anion Gap 3.9 mmol/L (6.8-13.8); BUN/Creatinine Ratio 37.9 (9.0-21.6); Bilirubin Direct 0.2 mg/dL (0.0-0.3); Bilirubin, Total 0.5 mg/dL (0.0-1.1); Bilirubin,Indirect 0.3 mg/dL (0.1-0.7); Calcium * 7.6 mg/dL (7.9-10.9); Carbon Dioxide 36.3 mmol/L (24-32.6); Estimated Creat Clear 34.5; Potassium 5.2 mmol/L (3.4-4.6); Total Protein 5.9 gm/dL (6.2-8.2)
[2019-04-25] MEDS ORDERED: ONDANSETRON HCL/PF 2 MG/ML VIAL IV ONE ×2 (12:47→15:00)
[2019-04-25] MEDS ORDERED: RINGER'S SOLUTION,LACTATED 500 ML IV ONE ×2 (12:57→13:34)
[2019-04-25] MEDS ORDERED: NORMAL SALINE 1,000 ML IV PRN (14:27)
[2019-04-25] MEDS ORDERED: PANTOPRAZOLE SODIUM 40 MG in NORMAL SALINE 100 ML IV SCH (14:30)
[2019-04-25] MEDS ORDERED: SUCRALFATE 1 G TABLET PO SCH ×2 (14:30→21:00)
[2019-04-25] MEDS ORDERED: RINGER'S SOLUTION,LACTATED 1,000 ML IV ONE (14:44)
[2019-04-25] MEDS ORDERED: ALBUTEROL SULFATE/IPRATROPIUM 3 ML NEBU IH ONE (14:45)
[2019-04-25 15:23] LABS: Hematocrit 26.5 % (42.0-52.0); Hemoglobin 8.8 gm/dL (13.5-18.0)
[2019-04-25] MEDS ORDERED: FUROSEMIDE 10 MG/ML VIAL IV ONE (16:31)
[2019-04-25] MEDS ORDERED: ACETAMINOPHEN 500 MG TABLET PO ONE (16:31)
[2019-04-25] MEDS ORDERED: diphenhydrAMINE HCL 50 MG CAPSULE PO ONE (16:31)
[2019-04-25] MEDS ORDERED: OCTREOTIDE ACETATE 50 MCG/ML VIAL IV ONE (16:35)
[2019-04-25] MEDS ORDERED: oxyCODONE HCL/ACETAMINOPHEN 1 TAB TABLET PO PRN (16:37)
[2019-04-25] MEDS ORDERED: MORPHINE SULFATE 15 MG TABLET.SA PO SCH (16:45)
[2019-04-25] MEDS ORDERED: FAMOTIDINE 20 MG in DEXTROSE 5 % IN WATER 100 ML IV SCH ×2 (16:45)
[2019-04-25] MEDS ORDERED: OCTREOTIDE ACETATE 500 MCG/ML IV ONE (17:00)
[2019-04-25] MEDS: ALBUTEROL SULFATE/IPRATROPIUM 3 ML NEBU IH SCH ×2 (17:36→20:04)
--- NOTE | 2019-04-25 18:04 | HP ---
Chief Complaint - Chief Complaint Date of Service: 04/25/19 Time of Service: 16:00 Chief Complaint: Upper GI Bleed History of Present Illness: 79 year-old male with past medical history of hypertension, type 2 diabetes mellitus, and COPD presented to for medicine ER due to acute blood loss anemia most likely secondary to upper GI bleed. Patient is status post left knee replacement approximately 1 week ago. Patient discharged to rehab facility and will doing well till this morning. Patient started having coffee-ground emesis this morning. [facility]. Hemoglobin 3 days ago was 10 today it is 8. Patient has no history of varices that we aware off or ulcerations. On arrival to the ER patient was hypotensive and symptomatic. Patient received 2 L fluid boluses for fluid resuscitation which resulted in fluid overload. Patient started on upper GI bleed protocol. Attempted NG tube which was unsuccessful. All blood thinners and hypertensive medications stopped. Patient was typed and screened and currently has 1 unit of blood started being administered, however patient is hypotensive and symptomatic. It appears patient is actively bleeding. Patient transferred to critical unit for and started on pressors. We will continue blood transfusions. At this moment patient will be transferred to higher facility for further management. Medical History (Last Reviewed 04/25/19 @ 12:22 by Mikey Masterson MD) Chronic bronchitis Onset Date: Unknown Congestive heart failure Onset Date: Unknown Diabetes mellitus type 2 in obese Onset Date: Unknown Echocardiogram abnormal Onset Date: 10/30/11 moderate LVH, EF normal History of DVT (deep vein thrombosis) Onset Date: Unknown Hypertension Onset Date: Unknown Abnormal stress test Onset Date: 09/27/11 undetermined Surgical History: Surgical History (Last Reviewed 04/25/19 @ 12:22 by Mikey Masterson MD) NATHAN Onset Date: 10/30/11 RLE with atherosclerotic disease and LLE normal Echocardiogram abnormal Onset Date: 10/30/11 Moderate LVH, EF normal 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 Irizarry-bilateral History of colonoscopy Onset Date: 12/26/17 12/26/17 [place]-diverticulosis. Recheck 10 yrs. History of knee replacement procedure of right knee Onset Date: ~2004 Dr. Irizarry Family History: Family History (Last Reviewed 04/25/19 @ 12:22 by Mikey Masterson MD) Brother , 1- age 60-unsure Myocardial infarction, Onset Age: 50 Father Lung cancer, Onset Age: 56 Mother Myocardial infarction, Onset Age: 54 Bone cancer, Onset Age: 54 Sister , 1-at No problems noted. 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 Absent: Chest Pain Abdominal: Present: Nausea, Hematemesis, Melena. Absent: Abdominal Pain, Bright blood from rectum Musculoskeletal: Present: Joint Swelling - BL LE Immunizations: IMMUNIZATION HX Immunizations Up to Date Yes History of Influenza Vaccine No Hx Pneumococcal Vaccination No Allergies/Adverse Reactions: Allergies Allergy/AdvReac Type Severity Reaction Status Date / Time No Known Allergies Allergy Verified 04/25/19 12:13 Home Medications: HOME MEDICATIONS ipratropium-albuterol 0.5 mg-3 mg(2.5 mg base)/3 mL nebulization soln 3 ml IH QID #360 ml 03/03/19 [Last Taken 04/25/19 12:00] lisinopril 40 mg tablet 40 mg PO DAILY #90 tab 03/18/19 [Last Taken 04/25/19 07:00] metformin 1,000 mg tablet 1,000 mg PO DAILY #90 tab 03/19/19 [Last Taken 04/25/19 07:00] Sildenafil Citrate [Revatio] 1 - 5 tab PO DAILY PRN 04/21/19 [Last Taken Unknown] Morphine Sulfate [Ms Contin] 15 mg PO Q12H #10 tablet.sa 04/24/19 [Last Taken 04/25/19 08:00] Sennosides/Docusate Sodium [Senokot-S] 2 tab PO HS #60 tab 04/24/19 [Last Taken 04/24/19] guaiFENesin/DEXTROMETHORPHAN [Robitussin-Dm] 10 ml PO Q4H PRN syrup 04/24/19 [Last Taken Unknown] oxyCODONE HCL/ACETAMINOPHEN [Percocet 5 MG/325 MG] 2 tab PO Q4H PRN #60 tab 04/24/19 [Last Taken 04/25/19 00:22] Aspirin 325 mg PO DAILY 04/25/19 [Last Taken Unknown] Enoxaparin Sodium [Lovenox] 40 mg SC Q24H 04/25/19 [Last Taken 04/25/19 07:00 40] Hydrochlorothiazide [Hydrodiuril] 25 mg PO DAILY 04/25/19 [Last Taken 04/25/19 07:00] Exam - Exam Vital Signs: Vital Signs - Last Taken Temp 37.0 C 04/25/19 15:50 Pulse 83 04/25/19 15:50 Resp 12 04/25/19 15:50 BP 104/61 04/25/19 15:50 Pulse Ox 96 04/25/19 15:50 Constitutional: Present: Alert, Oriented x3, Cooperative, Acute distress ENT Exam: Present: hearing grossly normal Neck: Present: full range of motion, supple Respiratory: Present: chest non-tender, respiratory distress, crackles - diffue Cardiovascular/Chest: Present: regular rate, rhythm, JVD, other - ASCITES, edema - LE BL Abdomen: Present: Normal bowel sounds, firm, distended Extremity: Present: lower extremity edema, swelling. Absent: normal range of motion - S/P knee replacement Skin Exam: Present: cool/dry Neurologic: Present: oriented x 3 Appearance: Present: appropriate appearance Eye contact: Present: cooperative Diagnostic Studies: Abnormal Lab Results 04/25/19 04/25/19 04/25/19 Range/Units 12:20 12:20 12:20 Hgb 10.0 L (13.5-18.0) gm/dL Hct 30.5 L (42.0-52.0) % pO2 (83.0-108.0) mmHg HCO3 (21.0-28.0) mmol/L Total CO2 (19.0-24.0) mmol/L Base Excess (-2.0-3.0) mmol/L Sodium 131 L (132-142) mmol/L Potassium 5.2 H (3.4-4.6) mmol/L Chloride 96 L (97-106) mmol/L Carbon Dioxide 36.3 H (24-32.6) mmol/L Anion Gap 3.9 L (6.8-13.8) mmol/L BUN 69 H D (6-23) mg/dL Creatinine 1.82 H D (0.4-1.4) mg/dL Est GFR (Non-Af Amer) 38 L D (60-130) mL/min BUN/Creatinine Ratio 37.9 H (9.0-21.6) Random Glucose 143 H (70-110) mg/dL Calcium 7.6 L (7.9-10.9) mg/dL Total Protein 5.9 L (6.2-8.2) gm/dL Albumin 2.1 L (3.4-5.0) gm/dl Gastric Occult Blood Crossmatch See Detail 04/25/19 04/25/19 04/25/19 Range/Units 12:41 15:20 16:50 Hgb 8.8 L (13.5-18.0) gm/dL Hct 26.5 L (42.0-52.0) % pO2 69.2 L (83.0-108.0) mmHg HCO3 28.2 H (21.0-28.0) mmol/L Total CO2 29.5 H (19.0-24.0) mmol/L Base Excess 3.7 H (-2.0-3.0) mmol/L Sodium (132-142) mmol/L Potassium (3.4-4.6) mmol/L Chloride (97-106) mmol/L Carbon Dioxide (24-32.6) mmol/L Anion Gap (6.8-13.8) mmol/L BUN (6-23) mg/dL Creatinine (0.4-1.4) mg/dL Est GFR (Non-Af Amer) (60-130) mL/min BUN/Creatinine Ratio (9.0-21.6) Random Glucose (70-110) mg/dL Calcium (7.9-10.9) mg/dL Total Protein (6.2-8.2) gm/dL Albumin (3.4-5.0) gm/dl Gastric Occult Blood Positive H Crossmatch Laboratory Results Hgb 8.8 gm/dL (13.5-18.0) L 04/25/19 15:20 Hct 26.5 % (42.0-52.0) L 04/25/19 15:20 PT 10.2 Seconds (9.1-10.7) 04/25/19 12:20 INR (Anticoag Therapy) 1.03 INR (0.92-1.08) 04/25/19 12:20 PTT ([place]) 29.4 Seconds (24-32) 04/25/19 12:20 pCO2 42.3 mmHg (35.0-48.0) 04/25/19 16:50 pO2 69.2 mmHg (83.0-108.0) L 04/25/19 16:50 HCO3 28.2 mmol/L (21.0-28.0) H 04/25/19 16:50 Total CO2 29.5 mmol/L (19.0-24.0) H 04/25/19 16:50 Base Excess 3.7 mmol/L (-2.0-3.0) H 04/25/19 16:50 ABG pH 7.44 (7.35-7.45) 04/25/19 16:50 ABG O2 Sat (Measured) 94.5 % (94.0-98.0) 04/25/19 16:50 Sodium 131 mmol/L (132-142) L 04/25/19 12:20 Plasma Sodium 132 mmol/L (130-142) 04/25/19 12:20 Potassium 5.2 mmol/L (3.4-4.6) H 04/25/19 12:20 Chloride 96 mmol/L (97-106) L 04/25/19 12:20 Carbon Dioxide 36.3 mmol/L (24-32.6) H 04/25/19 12:20 Anion Gap 3.9 mmol/L (6.8-13.8) L 04/25/19 12:20 BUN 69 mg/dL (6-23) H D 04/25/19 12:20 Creatinine 1.82 mg/dL (0.4-1.4) H D 04/25/19 12:20 Est GFR (Non-Af Amer) 38 mL/min (60-130) L D 04/25/19 12:20 BUN/Creatinine Ratio 37.9 (9.0-21.6) H 04/25/19 12:20 Random Glucose 143 mg/dL (70-110) H 04/25/19 12:20 Calcium 7.6 mg/dL (7.9-10.9) L 04/25/19 12:20 Total Bilirubin 0.5 mg/dL (0.0-1.1) 04/25/19 12:20 Direct Bilirubin 0.2 mg/dL (0.0-0.3) 04/25/19 12:20 Indirect Bilirubin 0.3 mg/dL (0.1-0.7) 04/25/19 12:20 AST 15 U/L (0-48) 04/25/19 12:20 ALT 19 U/L (19-67) 04/25/19 12:20 Alkaline Phosphatase 53 U/L (50-170) 04/25/19 12:20 Total Protein 5.9 gm/dL (6.2-8.2) L 04/25/19 12:20 Albumin 2.1 gm/dl (3.4-5.0) L 04/25/19 12:20 Gastric Occult Blood Positive H 04/25/19 12:41 Blood Type A Positive 04/25/19 12:20 Antibody Screen Negative 04/25/19 12:20 Crossmatch See Detail 04/25/19 12:20 Assessment/Plan - Narrative Narrative: 1.Hypotension due to blood loss - Received 2L NS resulting in fluid overload - Started Levo drip - Continous telemetry 2. Symptomatic anemia due to acute blood loss from Upper GI bleed - Started on 2 units of blood - 1 gram of TXA administered - NG tube unsuccessful 3. Acute exacerbation of CHF - No previous diagnosis - Unable to diurese due to hypotension FEN: NPO DVT prophylaxis: Coumadin CODE STATUS: FULL CODE Disposition: Patient is in cirtical condition and will transfer to [facility] for higher level of care. Case discussed with Dr Jordan Dawson. (Hospitalist) - Assessment/Plan (1) Hypotension due to blood loss Problem: Acute (2) Acute blood loss anemia Problem: Acute (3) Acute CHF (congestive heart failure) Problem: Acute (4) Upper GI bleed Problem: Acute (5) COPD (chronic obstructive pulmonary disease) Problem: Chronic Qualifiers: COPD type: chronic bronchitis
[2019-04-25] MEDS ORDERED: NOREPINEPHRINE BITARTRATE 4 MG in DEXTROSE 5 % IN WATER 496 ML IV PRN ×2 (19:07)
--- NOTE | 2019-04-25 19:15 | DS ---
Transfer Discharge Summary - Course Description of Stay: 79 year-old male with past medical history of hypertension, type 2 diabetes mellitus, and COPD presented to for medicine ER due to acute blood loss anemia most likely secondary to upper GI bleed. Patient is status post left knee replacement approximately 1 week ago. Patient discharged to rehab facility and will doing well till this morning. Patient started having coffee-ground emesis this morning. Brought from alf for further evaluation. Hemoglobin 3 days ago was 10 today it is 8. Patient has no history of varices that we aware off or ulcerations. On arrival to the ER patient was hypotensive and symptomatic. Patient received 2 L fluid boluses for fluid resuscitation which resulted in fluid overload. Patient started on upper GI bleed protocol. Attempted NG tube which was unsuccessful. All blood thinners and hypertensive medications stopped. Patient was typed and screened and currently has 1 unit of blood started being administered, however patient is hypotensive and symptomatic. It appears patient is actively bleeding. Patient transferred to critical unit for and started on pressors. We will continue blood transfusions. At this moment patient will be transferred to higher facility for further management. Discussed with Dr. Michael in regards to patient's critical condition. Recommended to continue attempting NG and average. To continue transfusion of blood and administer 1 g of IV TXA. Patient accepted to [facility] for further care. Consultation Done:: Dr Michael Procedures Performed: none - Results and Findings Results and Findings: Laboratory Results - last 24 hr 04/25/19 04/25/19 04/25/19 12:20 12:20 12:20 Hgb 10.0 L Hct 30.5 L PT 10.2 INR (Anticoag Therapy) 1.03 PTT ([place]) 29.4 pCO2 pO2 HCO3 Total CO2 Base Excess ABG pH ABG O2 Sat (Measured) Sodium 131 L Plasma Sodium 132 Potassium 5.2 H Chloride 96 L Carbon Dioxide 36.3 H Anion Gap 3.9 L BUN 69 H D Creatinine 1.82 H D Est GFR (Non-Af Amer) 38 L D BUN/Creatinine Ratio 37.9 H Random Glucose 143 H Calcium 7.6 L Total Bilirubin 0.5 Direct Bilirubin 0.2 Indirect Bilirubin 0.3 AST 15 ALT 19 Alkaline Phosphatase 53 Total Protein 5.9 L Albumin 2.1 L Gastric Occult Blood Blood Type Antibody Screen Crossmatch 04/25/19 04/25/19 04/25/19 12:20 12:41 15:20 Hgb 8.8 L Hct 26.5 L PT INR (Anticoag Therapy) PTT ([place]) pCO2 pO2 HCO3 Total CO2 Base Excess ABG pH ABG O2 Sat (Measured) Sodium Plasma Sodium Potassium Chloride Carbon Dioxide Anion Gap BUN Creatinine Est GFR (Non-Af Amer) BUN/Creatinine Ratio Random Glucose Calcium Total Bilirubin Direct Bilirubin Indirect Bilirubin AST ALT Alkaline Phosphatase Total Protein Albumin Gastric Occult Blood Positive H Blood Type A Positive Antibody Screen Negative Crossmatch See Detail 04/25/19 16:50 Hgb Hct PT INR (Anticoag Therapy) PTT ([place]) pCO2 42.3 pO2 69.2 L HCO3 28.2 H Total CO2 29.5 H Base Excess 3.7 H ABG pH 7.44 ABG O2 Sat (Measured) 94.5 Sodium Plasma Sodium Potassium Chloride Carbon Dioxide Anion Gap BUN Creatinine Est GFR (Non-Af Amer) BUN/Creatinine Ratio Random Glucose Calcium Total Bilirubin Direct Bilirubin Indirect Bilirubin AST ALT Alkaline Phosphatase Total Protein Albumin Gastric Occult Blood Blood Type Antibody Screen Crossmatch - Medications Medications: Active Medications Albuterol/Ipratropium (Duoneb 2.5-0.5mg/3ml Soln) 3 ml IH QIDRT ROGELIO Stop: 05/25/19 17:01 Last Admin: 04/25/19 17:36 Dose: Not Given Documented by: Pantoprazole Sodium 40 mg/ (Sodium Chloride) 100 mls @ 20 mls/hr IV Q5H ROGELIO Stop: 04/26/19 15:29 Last Admin: 04/25/19 16:01 Dose: Not Given Documented by: Discontinued Medications Albuterol/Ipratropium (Duoneb 2.5-0.5mg/3ml Soln) 3 ml IH ONCE ONE Stop: 04/25/19 14:46 Last Admin: 04/25/19 14:55 Dose: 3 ml Documented by: Pantoprazole Sodium (Protonix Iv Er Piggyback) 40 mg in 100 mls @ 400 mls/hr IV ONCE ONE Stop: 04/25/19 12:28 Last Infusion: 04/25/19 12:34 Dose: Infused Documented by: Lactated Ringer's (Lactated Ringers) 500 mls @ 999 mls/hr IV .Q31M ONE Stop: 04/25/19 13:27 Last Infusion: 04/25/19 13:33 Dose: Infused Documented by: Lactated Ringer's (Lactated Ringers) 500 mls @ 999 mls/hr IV .Q31M ONE Stop: 04/25/19 14:04 Last Infusion: 04/25/19 14:06 Dose: Infused Documented by: Sodium Chloride (Sodium Chloride 0.9%) 1,000 mls @ 125 mls/hr IV .Q8H PRN PRN Reason: HYDRATION Stop: 05/25/19 14:28 Last Infusion: 04/25/19 16:12 Dose: Infused Documented by: Lactated Ringer's (Lactated Ringers) 1,000 mls @ 999 mls/hr IV .Q1H1M ONE Stop: 04/25/19 15:44 Last Infusion: 04/25/19 15:51 Dose: Infused Documented by: Ondansetron HCl (Zofran) 4 mg IV ONCE ONE Stop: 04/25/19 12:48 Last Admin: 04/25/19 12:50 Dose: 4 mg Documented by: Ondansetron HCl (Zofran) 4 mg IV ONCE ONE Stop: 04/25/19 15:01 Last Admin: 04/25/19 15:22 Dose: 4 mg Documented by: Sucralfate (Carafate) 1 g PO BID ROGELIO Stop: 05/25/19 14:31 Last Admin: 04/25/19 18:30 Dose: Not Given Documented by: - Disposition Disposition: Short Term Hospital Inpatient Condition: Critical Discharge Date: 04/25/19 Discharge Time: 19:30
[2019-04-25] MEDS ORDERED: TRANEXAMIC ACID 1,000 MG in NORMAL SALINE 100 ML IV ONE (19:27)
[2019-04-25] MEDS ORDERED: SENNOSIDES/DOCUSATE SODIUM 1 TAB TABLET PO SCH (21:00)
[2019-04-25] MEDS ORDERED: BUMETANIDE 0.25 MG/ML VIAL IV SCH (21:00)
[2019-04-25 21:02] VITALS: BP 115/66
[2019-04-26] MEDS ORDERED: LISINOPRIL 40 MG TABLET PO SCH (09:00)
[2019-04-26] MEDS ORDERED: HYDROCHLOROTHIAZIDE 25 MG TABLET PO SCH (09:00)
== END 2019-04-25 20:20 | disposition short-term general hospital (02) ==
LOC: ER 11:59 → MS 11:59
PROVIDERS: ADMIT Family Medicine; ATTEND Family Medicine
CPT/HCPCS: 36415; 36600; 71010; 71045; 74019; 74020; 80048; 80076; 82272; 82803; 85014; 85018; 85610; 85730; 86850; 94640; 94664; 96365; 96366; 96375; 99285; J2405; P9016